=== PATIENT | female | born 2000 | race Hispanic/Latino ===

== ENCOUNTER 2022-03-09 10:15 | Day surgery (SDC) | payer OTHER ==
[2022-03-09 10:47] VITALS: BMI 25.4
[2022-03-09] MEDS ORDERED: Lactated Ringer's 1,000 ML IV SCH (10:58)
[2022-03-09] MEDS ORDERED: hydrALAZINE 20 MG/ML VIAL SLOW IVP PRN (11:19)
[2022-03-09] MEDS ORDERED: Ondansetron PF 4 MG/2 ML Vial IVP SCH (12:00)
[2022-03-09] MEDS ORDERED: Butorphanol Tartrate 1 MG/ML VIAL SLOW IVP PRN (12:01)
[2022-03-09] MEDS ORDERED: Butorphanol Tartrate 1 MG/ML VIAL ONE (12:07)
[2022-03-09 19:09] LABS: SARS-CoV-2 PCR by NAA Not Detected (NotDetected)
== END 2022-03-09 14:45 | disposition home or self-care (01) ==
LOC: CSHLD/OP 10:15
PROVIDERS: ATTEND Family Medicine
DX: O47.1 False labor at or after 37 completed weeks of gestation (principal); Z3A.39 39 weeks gestation of pregnancy; Z20.822 Contact with and (suspected) exposure to COVID-19
CPT/HCPCS: 76819; 96360; 96375; 99283; J0595; J2405; U0003; U0005

== ENCOUNTER 2022-03-12 08:50 | Inpatient (IN) | payer OTHER ==
[~2022-03-12 08:50] MED LIST: Bupivacaine 0.25% HCL 30 ML VIAL ONE; Bupivacaine/Epinephrine 0.25% 30 ML VIAL ONE
[2022-03-12] MEDS ORDERED: NS w/ Oxytocin 30 units 500 ML IV SCH ×2 (10:00)
[2022-03-12] MEDS ORDERED: Acetaminophen 500 MG TAB PO PRN (10:00)
[2022-03-12] MEDS ORDERED: Promethazine HCl 25 MG/ML VIAL IM PRN ×2 (10:00→17:05)
[2022-03-12] MEDS ORDERED: Carboprost 250 MCG/ML AMP IM PRN (10:00)
[2022-03-12] MEDS ORDERED: Methylergonovine 0.2 MG/ML VIAL IM PRN (10:00)
[2022-03-12] MEDS ORDERED: Diphenoxylate HCl/Atropine Tablet PO PRN (10:00)
[2022-03-12] MEDS ORDERED: HYDROcodone/Acetaminophen 5/325 mg Tablet PO PRN (10:00)
[2022-03-12] MEDS ORDERED: Ondansetron PF 4 MG/2 ML Vial IVP PRN ×2 (10:00→17:05)
[2022-03-12] MEDS ORDERED: Misoprostol 200 MCG TAB PR PRN (10:00)
[2022-03-12] MEDS ORDERED: hydrALAZINE 20 MG/ML VIAL SLOW IVP PRN (10:00)
[2022-03-12] MEDS ORDERED: Ibuprofen 800 MG TAB PO PRN (10:00)
[2022-03-12] MEDS ORDERED: Lidocaine 1% (PF) 30 ML VIAL SC PRN (10:00)
[2022-03-12 10:04] VITALS: BMI 25.4
[2022-03-12 10:18] LABS: Hemoglobin 14.5 g/dL (12.0-15.5); Mean Corpuscular HGB CONC 35.5 g/dL (32.0-36.0); Mean Corpuscular Volume 87.4 fl (81.6-98.3); Mean Platelet Volume 10.6 fl (7.4-10.4); Platelet Count 140 10x3/uL (150-450); RBC Distribution Width 13.6 % (11.5-14.5); Red Blood Cell (RBC) Count 4.67 10x6/uL (3.90-5.03); White Blood Cell (WBC) Count 7.3 10x3/uL (3.5-10.5)
[2022-03-12] MEDS: Misoprostol 100 MCG TAB PO SCH ×3 (10:24→18:39)
[2022-03-12 10:56] LABS: Hep B Surf Ag Non-Reactive S/CO (NonReactive); Syphilis Antibody Nonreactive (Nonreactive); Syphilis Antibody Index 0.04 S/CO (<1.00 Non-Reactive)
[2022-03-12] MEDS: Butorphanol Tartrate 1 MG/ML VIAL SLOW IVP PRN ×3 (13:37→17:01)
[2022-03-12 15:31] LABS: HBSAg Index 0.13 S/CO (0-0.99)
[2022-03-12] MEDS ORDERED: Fentanyl 2 mcg/Bup 0.1% Cadd 100 ML ONE (16:27)
[2022-03-12] MEDS ORDERED: Moisturizing Cream (Eucerin) 113 GM JAR TOP PRN (17:05)
[2022-03-12] MEDS ORDERED: Naloxone HCl 0.4 mg/ml Vial IVP PRN ×2 (17:05)
[2022-03-12] MEDS ORDERED: Acetaminophen 325 MG TAB PO PRN (17:05)
[2022-03-12] MEDS ORDERED: diphenhydrAMINE 50 MG/ML VIAL IVP PRN (17:05)
[2022-03-12] MEDS ORDERED: Lactated Ringer's 500 ML IV PRN (17:05)
[2022-03-12] MEDS ORDERED: ePHEDrine Sulfate 50 MG/10 ML VIAL SLOW IVP PRN (17:05)
[2022-03-12] MEDS ORDERED: Communication Order-Pharmacy FS SCH (17:15)
[2022-03-12] MEDS ORDERED: Fentanyl 2 mcg/Bupivacaine 0.1% Cassette 100 ML EPIDURAL SCH (17:15)
[2022-03-12] MEDS: Lactated Ringer's 1,000 ML IV SCH (18:38)
[2022-03-13 03:24] LABS: pH (Cord, venous) 7.282 (7.250-7.350)
[2022-03-13] MEDS ORDERED: HYDROcodone/Acetaminophen 5/325 mg Tablet PO SCH (03:45)
[2022-03-13] MEDS ORDERED: Ondansetron PF 4 MG/2 ML Vial IVP PRN (05:24)
[2022-03-13] MEDS ORDERED: hydrALAZINE 20 MG/ML VIAL SLOW IVP PRN (05:24)
[2022-03-13] MEDS ORDERED: diphenhydrAMINE 25 MG CAP PO PRN (05:24)
[2022-03-13] MEDS ORDERED: Promethazine HCl 25 MG/ML VIAL IM PRN (05:24)
[2022-03-13] MEDS ORDERED: Milk Of Magnesia 30 ML UDCUP PO PRN (05:24)
[2022-03-13] MEDS ORDERED: Boostrix 0.5 ML (Tdap) VIAL IM ONE (05:24)
[2022-03-13] MEDS ORDERED: Benzocaine-Menthol 82.5 ML CAN TOP PRN (05:24)
[2022-03-13] MEDS ORDERED: Bisacodyl 10 MG SUPP PR PRN (05:24)
[2022-03-13] MEDS ORDERED: NS w/ Oxytocin 30 units 500 ML IV SCH (06:00)
[2022-03-13] MEDS: Misoprostol 100 MCG TAB PO SCH (06:10)
[2022-03-13] MEDS: Ibuprofen 800 MG TAB PO SCH ×3 (06:10→21:34)
[2022-03-13] MEDS: Lactated Ringer's 1,000 ML IV SCH (06:11)
[2022-03-13] MEDS: Ferrous Sulfate 325 MG TAB PO SCH (07:31)
[2022-03-13] MEDS: Docusate 100 MG CAP PO SCH ×2 (09:53→21:34)
[2022-03-13] MEDS: Prenatal Vitamin 1 TAB PO SCH (09:53)
[2022-03-13] MEDS: HYDROcodone/Acetaminophen 5/325 mg Tablet PO PRN ×2 (15:26→21:35)
[2022-03-14] MEDS: Ibuprofen 800 MG TAB PO SCH ×3 (06:24→21:56)
[2022-03-14] MEDS: Ferrous Sulfate 325 MG TAB PO SCH ×2 (07:26→07:27)
[2022-03-14] MEDS: Prenatal Vitamin 1 TAB PO SCH (07:38)
[2022-03-14] MEDS: Docusate 100 MG CAP PO SCH ×2 (07:38→21:57)
[2022-03-15] MEDS: Ibuprofen 800 MG TAB PO SCH (05:36)
[2022-03-15 07:48] VITALS: BP 119/68; TEMP 98.5
[2022-03-15] MEDS: Prenatal Vitamin 1 TAB PO SCH (08:32)
[2022-03-15] MEDS: Docusate 100 MG CAP PO SCH (08:32)
[2022-03-15] MEDS: Ferrous Sulfate 325 MG TAB PO SCH (08:32)
== END 2022-03-15 13:00 | disposition home or self-care (01) | DRG 807 ==
LOC: CSHLD 08:50 → CSHPED 03-13 05:45
PROVIDERS: ADMIT Family Medicine; ATTEND Family Medicine
PROC: 10D07Z6 Extraction of Products of Conception, Vacuum, Via Natural or Artificial Opening (ICD-10-PCS; principal; 2022-03-13)
PROC: 3E0P7VZ Introduction of Hormone into Female Reproductive, Via Natural or Artificial Opening (ICD-10-PCS; 2022-03-13)
PROC: 0HQ9XZZ Repair Perineum Skin, External Approach (ICD-10-PCS; 2022-03-13)
DX: O42.02 Full-term premature rupture of membranes, onset of labor within 24 hours of rupture (principal); Z37.0 Single live birth; O69.81X0 Labor and delivery complicated by cord around neck, without compression, not applicable or unspecified; Z3A.40 40 weeks gestation of pregnancy; O70.0 First degree perineal laceration during delivery; O75.81 Maternal exhaustion complicating labor and delivery
CPT/HCPCS: 36415; 51702; 82805; 85027; 86780; 86850; 86900; 86901; 87340; 99285; J0595; J2590; S0020